=== PATIENT | male | born 1955 | race Caucasian/White ===

== ENCOUNTER → 2024-11-09 | Day surgery (SDC) | payer MEDICARE, MEDICAID ==
[2024-11-09] VITALS (10 sets, daily range): BP systolic 97–123; BP diastolic 69–96; PULSE 53–71; RESP 9–17; TEMP 97.9; O2SAT 95–100
[~2024-11-09] VITALS: Ht 172.7 cm; Wt 70.4 kg
[~2024-11-09] MED LIST: ASPI81TA52 PO; BUPIVAcaine/PF 2.5mg/ml (0.25%) 10ml vial ONE; CALC-965 PO; DILT-35 PO; HYDROmorphone/PF 0.2 MG/ML SYRINGE IV PRN; LIDOcaine 0.5% (5mg/ml) 50ml vial ONE; LIDOcaine 2% (20mg/ml) 5ml vial ONE; acetaminophen 1,000mg/100ml IV 100 ML IV PRN; fentaNYL/PF 50MCG/1 ML 2ML syringe ONE; hydrALAZINE 20mg/ml inj. IV PRN; labetalol 20mg/4ml (5mg/ml) syringe IV PRN; meperidine/PF 25mg/ml syringe IV PRN; midazolam 1 mg/ML 2ml injection ONE; morphine 2 MG/ML inj. syringe IV PRN; morphine 4 MG/ML inj SYRINge IV PRN; ondansetron/PF 4mg/2ml inj IV PRN; proCHLORperazine 10 MG/2 ml inj IV PRN; propofol inj 20 ML IV ONE; ringers solution, lacted 1,000 ML IV SCH
--- NOTE | 2024-11-09 06:39 | ELECTROCARDIOGRAPH REPORT ---
[facility] Test Date: 2024-11-09 Test Time: 06:36:55 Pat Name: STEVE GUERRERO Department: [facility] Patient ID: [facility]-[id number] Room: Gender: M Lead Web Developer: GRACE : 1955 Requested By: JOHNNY TORRES Order Number: [id number] Reading MD: Dr. TOMÁS Ruiz Measurements Intervals [place] Rate: 55 P: 0 SC: 0 QRS: -82 QRSD: 94 T: 72 QT: 420 QTc: 402 Interpretive Statements Atrial fibrillation Left anterior fascicular block Anterior infarct, old Electronically Signed On 11-09-2024 13:29:[address] TOMÁS Ruiz Please click the below link to view image of tracing.
[2024-11-09] MEDS: ceFAZolin 2gm in dextrose, iso 50 ML IV ONE (06:56)
[2024-11-09] MEDS: ringers solution, lacted 1,000 ML IV SCH (06:56)
[2024-11-09] MEDS: famotidine 20mg tablet PO ONE (06:56)
[2024-11-09 07:39] LABS: PRE OP HEMOGLOBIN 14.2 g/dL (14.0-17.9); RED BLOOD COUNT 4.65 X10'6 (4.70-6.10)
[2024-11-09 07:40] LABS: MEAN PLATELET VOLUME 9.4 FL (7.4-10.4)
[2024-11-09 07:57] LABS: ALBUMIN 3.6 G/DL (3.4-5.0); ALBUMIN/GLOBULIN RATIO 1.3 (1.1-1.5); ALKALINE PHOSPHATASE 75 IU/L (46-116); BLOOD UREA NITROGEN 19 MG/DL (7-18); BUN/CREATININE RATIO 28.4 (10.0-20.0); CALCIUM 8.1 MG/DL (8.5-10.1); CHLORIDE 106 MMOL/L (99-107); CREATININE 0.67 MG/DL (0.60-1.10); PRE OP ALT 27 U/L (30-65); PRE OP ANION GAP 9 (8-16); PRE OP AST 39 U/L (10-37); PRE OP BILIRUB, TOTAL 0.7 MG/DL (0.0-1.0); PRE OP GLUCOSE 83 MG/DL (70-104); PRE OP POTASSIUM 3.7 MMOL/L (3.4-5.1); PRE OP SODIUM 143 MMOL/L (135-145); TOTAL CARBON DIOXIDE 27.8 MMOL/L (24-32); TOTAL PROTEIN 6.4 G/DL (6.4-8.2); eCRCL 104 ML/MIN; eGFR > 90 ML/MIN
[2024-11-09 07:59] LABS: BASOPHILS % (AUTO) 1.3 % (0-1); EOSINOPHILS # (AUTO) 0.1 X10'3 (0-0.9); EOSINOPHILS % (AUTO) 2.6 % (0-6); LYMPHOCYTES # (AUTO) 1.2 X10'3 (1.1-4.8); LYMPHOCYTES % (AUTO) 37.7 % (21-51); MEAN CORPUSCULAR HEMOGLOBIN 30.6 PG (27.0-31.0); MEAN CORPUSCULAR HGB CONC 33.7 g/dL (33.0-36.5); MEAN CORPUSCULAR VOLUME 90.6 FL (78-98); MONOCYTES # (AUTO) 0.6 X10'3 (0-0.9); MONOCYTES % (AUTO) 17.6 % (2-12); NEUTROPHILS # (AUTO) 1.3 X10'3 (1.8-7.7); NEUTROPHILS % (AUTO) 40.8 % (42-75); PRE OP HEMATOCRIT 42.1 % (42.0-52.0); PRE OP PLATELET COUNT 137 X10'3 (140-440); PRE OP WHITE BLOOD COUNT 3.2 10'3 (4.8-10.8); RED CELL DISTRIBUTION WIDTH 13.4 % (11.5-14.5)
[2024-11-09 10:05] LABS: TOTAL CELLS COUNTED 100
[2024-11-09 10:06] LABS: PLATELET ESTIMATE DECREASED
--- NOTE | 2024-11-09 12:32 | OPERATIVE REPORT ---
Operative Report Providers to ~ Date of Procedure: November 09, 2024 Pre-Operative Diagnosis: Right wrist arthritis Post-Operative Diagnosis SAME as PRE-Op Procedure Performed Right wrist arthrodesis Surgeon: Carlos Romano MD Selling Underwriter None Anesthesiologist: Andrews Rosas Type of Anesthesia: Regional Findings: Severe radiocarpal arthritis Prosthetics\Implants used: Acumed wrist fusion plate neutral Estimated Blood Loss: Minimal Specimen Removed: None Description of Procedure: The patient is a 69-year-old man with a severe arthritis in the wrists and virtually no motion but complains mostly of pain. Surgery is indicated to relieve pain and improve function. Risks and benefits were discussed with the patient. Some of the risks include nonunion failure of hardware continued wrist pain and need for further surgery a s well as stiffness with the fingers. He agreed to proceed. He was given a block in the operating room and the arm was prepped and draped in usual manner. A dorsal incision was made over the wrist after time-out procedure was observed. The dissection was taken down between 3rd and 4th extensor compartments. The EPL was removed from its position around Hung's tubercle and allowed to retract radially. The 4th extensor compartment was retracted to the ulnar side. The dorsal capsule incision was made and an osteotome was used to remove the dorsal cortex of the radius. Motorized bur was used to remove any remaining articular cartilage at the radiocarpal and intercarpal joints. The plate was chosen and placed on the wrist under fluoro to achieve proper repositioning. It was then attached distally with a small locking screws to the 3rd metacarpal. The wrist was then placed in the flexed position and distracted and as much bone putty could be packed and there was possible. We probably were able to get the 3 cc of bone putty in the area. The wrist was then brought back into the proper position and affixed proximally in compression mode as well as with locking screws. Fluoro imaging was done throughout the case and final images were obtained. Good position of the hand was noted at the screw lengths were good. This the incision was closed in layers. Marcaine was injected and a sterile dressing was applied along with a splint. The tourniquet was released the hand perfused well. He was taken to the recovery room in stable condition CARLOS ROMANO Jr., MD November 09, 2024 12:32
== END | disposition home or self-care (01) ==
LOC: PAS 06:01
PROVIDERS: ATTEND Orthopaedic Surgery Hand Surgery
DX: M19.031 Primary osteoarthritis, right wrist (principal); I25.2 Old myocardial infarction; I44.4 Left anterior fascicular block; I48.91 Unspecified atrial fibrillation; Z79.899 Other long term (current) drug therapy; G47.33 Obstructive sleep apnea (adult) (pediatric); Z98.890 Other specified postprocedural states; G40.909 Epilepsy, unspecified, not intractable, without status epilepticus; Z79.82 Long term (current) use of aspirin
CPT/HCPCS: 25800; 80053; 82948; 85025; 93005; A4215; A6449; A7000; C1713; J0690; J2003; J2250; J2704; J3010; J3490; J7030; J7120; Z7506; Z7508; Z7512; Z7610; 85007